=== PATIENT | female | born 1930 | race Caucasian/White ===

== ENCOUNTER 2018-06-14 13:42 | Inpatient (IN) | payer MEDICARE, BC ==
[~2018-06-14] VITALS: Ht 165.1 cm; Wt 66.7 kg
--- NOTE | ~2018-06-14 | OP ---
PATIENT NAME: HENRY ALATORRE MEDICAL RECORD: [id number] :32 LOCATION:[id number] ADMISSION DATE:06/14/18 SURGEON: JEFF FOSTER DO DATE OF OPERATION: 06/15/2018 PROCEDURE PERFORMED: Left sary hip arthroplasty. PREOPERATIVE DIAGNOSIS: Left femoral neck fracture. POSTOPERATIVE DIAGNOSIS: Left femoral neck fracture. INDICATIONS: Ms. Alatorre is an 88-year-old female that lives in a senior care. She fell onto her left hip yesterday morning, could not bear weight on it. She is demented and does not remember all of what happened, but she does answer questions and is pleasant. She was consented by phone to a family member for the procedure, aware of the risks and benefits of infection, bleeding, need for further surgery, fracture and revision and they consented over the phone. SURGEON: Jeff Foster DO DESCRIPTION OF PROCEDURE: The patient was taken to the operating suite and laid in supine position, given general anesthetic. The left hip was prepped and draped in sterile fashion. The patient was given a test dose of Ancef due to the fact she was allergic to PENICILLIN with a rash and she did not have a reaction and she was given 2 grams Ancef. The timeout was performed, everyone was in agreement with the correct side, site and patient. Once this was done and the hip had been prepped and draped the patient had been placed on the Nora table and the incision began over the tensor fascia kelly muscle belly and careful dissection was made down to the tensor fascia kelly fascia. This was divided and the fascia was taken anterior, muscle belly was taken posteriorly. Then the interval between the rectus and tensor fascia kelly was encountered. This was opened and the rectus was taken medially and the tensor fascia kelly laterally. The ascending branch of the lateral femoral circumflex was then encountered, tied off and coagulated with the Aquamantys and divided and then the hip capsule was encountered. Hohmanns were placed on either side of the femoral neck. The capsule was then opened and tagged. The hip was then exposed and the fracture was seen and seemed to be right in the subcapital region of the femoral neck, so a neck cut was made. Then, the head was removed. Once the head was removed, the ligamentum teres was removed from the hip. The acetabulum and all bleeding was coagulated at that time with Aquamantys. The femur was then exposed and a canal finder was used and broaching began. We broached up to a 12 and reduced the hip with a -3 head, seen we could probably get a bigger stem in on the x-ray, but the length was good and may slightly cut a little more neck. We did that and put a 13 stem down and trialed with a -3 head. This seemed to fit very well and then the implant was put on and reduced and under fluoroscopy, seen to have a very good fit and good lengths compared to the other side. Hip was very stable with internal and external rotation and did not sublux easily. The wound was then thoroughly irrigated and vancomycin powder was placed into the wound and Surgicel beads were placed into the wound and the tensor fascia kelly fascia was then closed with #1 Vicryl, first in [id number] and then a running locking stitch, and 2-0 Vicryl was then used to close the skin in an inverted interrupted fashion, 4-0 Monocryl ran on the skin and Prineo was placed on the skin. Telfa and Tegaderm were then placed on the skin for a dressing. The patient was awakened and taken to recovery in stable condition. OPERATIVE REPORT [id number] HENRY ALATORRE BLOOD LOSS: 200 mL. COMPLICATIONS: None. TRANSINT:[id number] Voice Confirmation ID: [id number] DOCUMENT ID: [id number] JEFF FOSTER DO at 0835 CC: [id number] DICTATION DATE: 06/15/18 08 DIRECTOR DISTRIBUTION: 06/15/[address] [facility] [address] [place] [address]
[2018-06-14 14:30] LABS: BASOPHILS 0.1 % (0-2); EOSINOPHILS 0.4 % (0-7); HEMATOCRIT 38.7 % (36.0-48.0); HEMOGLOBIN 12.4 g/dL (12-16); IMMATURE GRANULOCYTES 0.5 % (0-5); LYMPHOCYTES 26.3 % (15-50); MCH 28.7 pg (26.0-34.0); MCV 89.6 fL (80.0-100.0); MEAN PLATELET VOLUME 9.9 fL (7.4-10.4); MONOCYTES 6.7 % (2-11); PLATELET COUNT 174 10x3/uL (130-400); RBC 4.32 10x6/uL (4.00-5.40); RDW 16.2 % (11.5-14.5); WBC 14.5 10x3/uL (4.8-10.8)
[2018-06-14 14:50] LABS: APTT 29.2 SECONDS (22.8-39.4); INR 1.08 (0.85-1.17); PROTIME 13.6 SECONDS (11.6-15.0)
[2018-06-14 14:57] LABS: ALBUMIN 2.9 g/dL (3.4-5.0); ANION GAP 10.2 mmol/L (8-16); BILIRUBIN - TOTAL 0.56 mg/dL (0.2-1.3); CALCIUM 8.7 mg/dL (8.5-10.1); CARBON DIOXIDE 30.7 mmol/L (21.0-32.0); CREATININE - SERUM 0.9 mg/dL (0.6-1.3); POTASSIUM - SERUM 3.9 mmol/L (3.5-5.1); PROTEIN - SERUM 6.4 g/dL (6.4-8.2)
[2018-06-14 20:00] VITALS: BP 112/43
[2018-06-15 03:04] VITALS: BP 112/43; BMI 24.5
[2018-06-15 04:00] VITALS: BP 144/60
[2018-06-15 09:32] VITALS: BP 145/52
[2018-06-15 12:00] VITALS: BP 134/63
[2018-06-15 13:16] VITALS: Ht 165.1 cm; Wt 66.7 kg
[2018-06-15 14:08] VITALS: BP 134/61
[2018-06-15 20:00] VITALS: BP 121/44
[2018-06-16 04:00] VITALS: BP 110/40
[2018-06-16 06:19] LABS: HEMATOCRIT 31.2 % (36.0-48.0); MCH 28.4 pg (26.0-34.0); MCHC 31.7 g/dL (31.0-37.0); MCV 89.4 fL (80.0-100.0); MEAN PLATELET VOLUME 10.6 fL (7.4-10.4); RBC 3.49 10x6/uL (4.00-5.40); RDW 16.5 % (11.5-14.5); WBC 14.3 10x3/uL (4.8-10.8)
[2018-06-16 06:27] LABS: HEMOGLOBIN 9.9 g/dL (12-16)
[2018-06-16 08:02] VITALS: BP 117/41
[2018-06-16 08:15] VITALS: BP 117/41
[2018-06-16 12:00] VITALS: BP 144/43
[2018-06-16 16:11] VITALS: BP 117/41
[2018-06-16 16:21] VITALS: BP 159/47
[2018-06-17 04:54] VITALS: BP 124/52
[2018-06-17 05:54] LABS: HEMATOCRIT 30.4 % (36.0-48.0); HEMOGLOBIN 9.6 g/dL (12-16); MCH 28.4 pg (26.0-34.0); MCHC 31.6 g/dL (31.0-37.0); MCV 89.9 fL (80.0-100.0); MEAN PLATELET VOLUME 10.5 fL (7.4-10.4); RBC 3.38 10x6/uL (4.00-5.40); RDW 16.4 % (11.5-14.5); WBC 12.7 10x3/uL (4.8-10.8)
[2018-06-17 08:28] VITALS: BP 139/95
[2018-06-17 12:09] VITALS: BP 132/54
[2018-06-17 15:31] VITALS: BP 128/60
[2018-06-17 21:47] VITALS: BP 154/59
[2018-06-18 06:13] VITALS: BP 149/62
[2018-06-18 08:48] VITALS: BP 147/54
[2018-06-18 15:26] VITALS: BP 123/53
[2018-06-18 22:30] VITALS: BP 154/98
[2018-06-19 04:09] VITALS: BP 155/60
[2018-06-19 08:08] VITALS: BP 155/56
[2018-06-19] MEDS ORDERED: ELIQUIS2.5 MG PO (08:10)
[2018-06-19] MEDS ORDERED: BACTRIM 400-801 TAB PO (08:11)
[2018-06-19] MEDS ORDERED: TYLENOL W/CODEI1 TAB PO (08:11)
[2018-06-19 16:30] VITALS: BP 148/62
== END 2018-06-19 16:30 | DRG 470 ==
LOC: D.ER 13:42 → D.EDHOLD 16:13 → D.MS 16:13
PROVIDERS: Emergency Medicine; Orthopaedic Surgery
PROC: 0SRS0JZ Replacement of Left Hip Joint, Femoral Surface with Synthetic Substitute, Open Approach (ICD-10-PCS; principal; 2018-06-15 05:30)
DX: S72.012A Unspecified intracapsular fracture of left femur, initial encounter for closed fracture (principal); W19.XXXA Unspecified fall, initial encounter; Y92.129 Unspecified place in nursing home as the place of occurrence of the external cause; F03.90 Unspecified dementia, unspecified severity, without behavioral disturbance, psychotic disturbance, mood disturbance, and anxiety; G47.00 Insomnia, unspecified; I10 Essential (primary) hypertension; F41.9 Anxiety disorder, unspecified; D64.9 Anemia, unspecified

== ENCOUNTER 2018-06-23 17:00 | Emergency (ER) | payer MEDICARE, BC ==
[~2018-06-23 17:00] MED LIST: BACTRIM 400-801 TAB PO; ELIQUIS2.5 MG PO; TYLENOL W/CODEI1 TAB PO
[2018-06-23 17:13] VITALS: Ht 165.1 cm
[2018-06-23 19:26] LABS: BASOPHILS 0.3 % (0-2); EOSINOPHILS 1.5 % (0-7); HEMATOCRIT 31.8 % (36.0-48.0); HEMOGLOBIN 10.2 g/dL (12-16); IMMATURE GRANULOCYTES 0.5 % (0-5); LYMPHOCYTES 33.8 % (15-50); MCH 28.3 pg (26.0-34.0); MCHC 32.1 g/dL (31.0-37.0); MCV 88.1 fL (80.0-100.0); MEAN PLATELET VOLUME 9.2 fL (7.4-10.4); NEUTROPHILS 55.9 % (40-80); PLATELET COUNT 338 10x3/uL (130-400); RBC 3.61 10x6/uL (4.00-5.40); RDW 14.8 % (11.5-14.5); WBC 10.4 10x3/uL (4.8-10.8)
[2018-06-23 19:35] LABS: INR 1.29 (0.85-1.17); PROTIME 15.7 SECONDS (11.6-15.0)
[2018-06-23 19:40] LABS: ALBUMIN 2.3 g/dL (3.4-5.0); ANION GAP 12.8 mmol/L (8-16); BILIRUBIN - TOTAL 0.58 mg/dL (0.2-1.3); CALCIUM 8.3 mg/dL (8.5-10.1); CARBON DIOXIDE 27.2 mmol/L (21.0-32.0); CREATININE - SERUM 0.9 mg/dL (0.6-1.3); PROTEIN - SERUM 5.9 g/dL (6.4-8.2)
[2018-06-23 23:32] VITALS: BP 155/67
== END 2018-06-23 23:32 ==
LOC: D.ER 17:00
PROVIDERS: Emergency Medicine
DX: F03.90 Unspecified dementia, unspecified severity, without behavioral disturbance, psychotic disturbance, mood disturbance, and anxiety (principal); W18.30XA Fall on same level, unspecified, initial encounter; Y93.89 Activity, other specified; Y92.129 Unspecified place in nursing home as the place of occurrence of the external cause; Z96.642 Presence of left artificial hip joint